=== PATIENT | female | born 1965 ===

== ENCOUNTER → 2024-02-01 | Outpatient (CLI) | payer BC ==
--- NOTE | 2024-02-01 12:19 | CT ---
EXAMINATION TYPE: CT abdomen pelvis wo con DATE OF EXAM: 02/01/2024 HISTORY: flank pain CT DLP: 1160 mGycm. Automated Exposure Control for Dose Reduction was Utilized. TECHNIQUE: CT scan of the abdomen and pelvis is performed without oral or IV contrast. COMPARISON: None Findings: The lungs are clear. There is surgical absence of the gallbladder. There is no biliary ductal dilatation. There is no organomegaly of the liver, pancreas, spleen or adrenal glands. There is a staghorn calculus of the right kidney with mild hydronephrosis. There are 2 kalen-like non obstructing calcifications in the left kidney. The caliber of the abdominal aorta is normal and there is no retroperitoneal adenopathy or hemorrhage . The bowel loops are normal in caliber is no evidence of obstruction. No inflammatory changes are iden tified in the mesentery and there is no free intraperitoneal air or fluid. There is no pelvic mass, free fluid, abscess or adenopathy. There is mild diverticulosis of the colon without CT evidence of diverticulitis. The osseous structures and soft tissues are unremarkable. IMPRESSION: 1. Staghorn calculus of the right kidney with mild hydronephrosis. 2. 2 tiny nonobstructing calcifications left kidney. 3. No other significant abnormality seen.
== END | disposition home or self-care (01) ==
LOC: RADCTMAIN 11:50
PROVIDERS: ATTEND Urology
DX: N13.2 Hydronephrosis with renal and ureteral calculous obstruction (principal); N28.89 Other specified disorders of kidney and ureter
CPT/HCPCS: 74176

== ENCOUNTER 2024-03-23 12:58 | Emergency (ER) | payer BC ==
--- NOTE | 2024-03-23 13:08 | ED ---
Lower Extremity Injury HPI - General Chief Complaint: Extremity Injury, Lower Stated Complaint: R leg pain Time Seen by Provider: 03/23/24 13:08 Source: patient, RN notes reviewed Mode of arrival: ambulatory Limitations: no limitations - History of Present Illness Initial Comments: 58-year-old female presents emergency department chief complaint of right knee pain. Patient states that last week Monday she was at a hair salon when she lifted her leg up to get into the chair and twisted her knee. Patient denies falling, hitting her head or loss conscious from the injury. Patient thought that she experienced a muscle strain at this time was prescribed Celexa by primary care provider which she has been taking as needed however this is not alleviated symptoms. Currently the pain is located to the lateral knee and is exacerbated with range of motion and ambulation. Denies previous surgeries of the knee. No other acute complaints at this time MD Complaint: knee injury -: week(s) Injury: Knee: Right Worsens With: weight bearing, movement, palpation - Related Data Previous Rx's Medication Instructions Recorded Celecoxib [CeleBREX] 100 mg PO BID PRN #14 cap 03/23/24 Allergies Allergy/AdvReac Type Severity Reaction Status Date / Time Penicillins Allergy Rash/Hives Verified 03/23/24 13:04 Review of Systems ROS Statement: Those systems with pertinent positive or pertinent negative responses have been documented in the HPI. ROS Other: All systems not noted in ROS Statement are negative. Past Medical History Past Medical History: Diabetes Mellitus, Hyperlipidemia Additional Past Medical History / Comment(s): kidney stones. POTS Past Surgical History: Cholecystectomy, Hysterectomy Smoking Status: Never smoker Past Alcohol Use History: None Reported Past Drug Use History: None Reported General Exam Limitations: no limitations General appearance: alert, in no apparent distress ENT exam: Present: normal exam, mucous membranes moist Neck exam: Present: normal inspection. Absent: tenderness, meningismus, lymphadenopathy Respiratory exam: Present: normal lung sounds bilaterally. Absent: respiratory distress, wheezes, rales, rhonchi, stridor Cardiovascular Exam: Present: regular rate, normal rhythm, normal heart sounds. Absent: systolic murmur, diastolic murmur, rubs, gallop, clicks GI/Abdominal exam: Present: soft, normal bowel sounds. Absent: distended, tenderness, guarding, rebound, rigid Right Knee exam: Present: tenderness, swelling (anterior), pain/laxity with valgus, pain/laxity with varus. Absent: abrasion, laceration, ecchymosis, deformity, crepitus, dislocation Foot/Toe exam: Present: normal inspection, full ROM. Absent: tenderness, swelling, abrasion Neurovascular tendon exam: Present: no vascular compromise. Absent: pulse deficit, abnormal cap refill Back exam: Present: normal inspection Neurological exam: Present: alert, oriented X3, CN II-XII intact Skin exam: Present: warm, dry, intact, normal color. Absent: rash Course Vital Signs 03/23/24 03/23/24 13:00 14:33 Temperature 97.7 F 98.1 F Pulse Rate 100 55 L Respiratory 20 18 Rate Blood Pressure 206/99 148/87 O2 Sat by Pulse 99 97 Oximetry Medical Decision Making - Medical Decision Making Was pt. sent in by a medical professional or institution (, PA, WIRE WINDER, urgent care, hospital, or detention...) When possible be specific @ -No Did you speak to anyone other than the patient for history (EMS, parent, family, police, friend...)? What history was obtained from this source @ -No Did you review nursing and triage notes (agree or disagree)? Why? @ -I reviewed and agree with nursing and triage notes Were old charts reviewed (outside hosp., previous admission, EMS record, old EKG, old radiological studies, urgent care reports/EKG's, detention records)? Report findings @ -No old charts were reviewed Differential Diagnosis (chest pain, altered mental status, abdominal pain women, abdominal pain men, vaginal bleeding, weakness, fever, dyspnea, syncope, headache, dizziness, GI bleed, back pain, seizure, CVA, palpatations, mental health, musculoskeletal)? @ -Differential Musculoskeletal Muscular strain, contusion, ligament sprain, fracture, arthritis, septic arthritis, bursitis, cellulitis, muscle spasm, nerve compression, DVT, arterial occlusion, herpes zoster, electrolyte abnormality, tumor.... This is not meant to be in all inclusive list EKG interpreted by me (3pts min.). @ -none X-rays interpreted by me (1pt min.). @ - xray of the right knee reveals no acute osseous pathology with osteoarthritic changes. CT interpreted by me (1pt min.). @ -None done U/S interpreted by me (1pt. min.). @ -None done What testing was considered but not performed or refused? (CT, X-rays, U/S, labs)? Why? @ -None What meds were considered but not given or refused? Why? @ -None Did you discuss the management of the patient with other professionals (professionals i.e. Dr., PA, WIRE WINDER, lab, RT, psych nurse, rn social services, cemetery workers supervisor, teacher, child support officer, correctional casework specialist)? Give summary @ -No Was smoking cessation discussed for >3mins.? @ -No Was critical care preformed (if so, how long)? @ -No Were there social determinants of health that impacted care today? How? (Homelessness, low income, unemployed, alcoholism, drug addiction, transportation, low edu. Level, literacy, decrease access to med. care, skilled nursing, rehab)? @ -No Was there de-escalation of care discussed even if they declined (Discuss DNR or withdrawal of care, Hospice)? DNR status @ -No What co-morbidities impacted this encounter? (DM, HTN, Smoking, COPD, CAD, Cancer, CVA, ARF, Chemo, Hep., AIDS, mental health diagnosis, sleep apnea, morbid obesity)? @ -None Was patient admitted / discharged? Hospital course, mention meds given and route, prescriptions, significant lab abnormalities, going to OR and other pertinent info. @ -discharged. 58-year-old female with right knee pain. On examination patient noted to have mild to moderate anterior swelling over the right knee and mild pain with range of motion of the knee. There were no neurovascular deficits on examination. patient is provided with toradol pending results of XR imaging. X-ray negative for acute process. Recommend patient follows up outpatient with primary care provider for further evaluation and recommend potential for further imaging such as MRI outpatient. Continue supportive treatment at home. sent prescription for celebrex to take as needed for pain relief. all questions answered at bedside and return parameters discussed and she has verbalized understanding. discussed with Dr. Kang. Undiagnosed new problem with uncertain prognosis? @ -No Drug Therapy requiring intensive monitoring for toxicity (Heparin, Nitro, Insulin, Cardizem)? @ -No Were any procedures done? @ -No Diagnosis/symptom? @ -Knee pain Acute, or Chronic, or Acute on Chronic? @ -Acute Uncomplicated (without systemic symptoms) or Complicated (systemic symptoms)? @ -uncomplicated Side effects of treatment? @ -No Exacerbation, Progression, or Severe Exacerbation? @ -No Poses a threat to life or bodily function? How? (Chest pain, [place], PR, pneumonia, PE, COPD, DKA, ARF, appy, cholecystitis, CVA, Diverticulitis, Homicidal, Suicidal, threat to staff... and all critical care pts) @ -No Disposition Clinical Impression: Right knee pain Disposition: HOME SELF-CARE Condition: Good Instructions (If sedation given, give patient instructions): Knee Sprain (ED) Additional Instructions: Return to emergency department for any new or worsening symptoms. Recommend you continue supportive treatment at home. Follow-up with your primary care provider within the next week for further evaluation. Prescriptions: Celecoxib [CeleBREX] 100 mg PO BID PRN #14 cap PRN Reason: Pain Is patient prescribed a controlled substance at d/c from ED?: No Referrals: Nonstaff,Physician [REFERRING] - 1-2 days Time of Disposition: 14:16
[2024-03-23] MEDS: KETOROLAC 15 MG/ML 1 ML VIAL IM STA (13:22)
--- NOTE | 2024-03-23 13:48 | XR ---
EXAMINATION TYPE: XR knee complete RT DATE OF EXAM: 03/23/2024 1:36 PM CLINICAL INDICATION: Female, 58 years old with history of swelling, injury 2 weeks ago, pain; COMPARISON: None. TECHNIQUE: XR knee complete RT; examined in Frontal, lateral and oblique projections. FINDINGS: No evidence of any acute osseous pathology, soft tissue swelling, or joint effusion is no ernie. Tricompartmental osteophyte formation involving the femoral condyles, tibial plateau and patella . Mild joint space narrowing. A fabella is present. IMPRESSION: 1. No acute osseous pathology. 2. Mild tricompartmental osteoarthritic changes. [facility], Workstation [id number], 03/23/2024 1:46 PM
[2024-03-23 14:34] VITALS: BP 148/87; PULSE 55; RESP 18; TEMP 98.1
== END 2024-03-23 14:34 | disposition home or self-care (01) ==
LOC: EC 12:58
CPT/HCPCS: 96372; 99283

== ENCOUNTER → 2024-03-25 | Outpatient (CLI) | payer BC ==
[2024-03-25 20:46] LABS: Appearance,Urine Turbid (Clear); Bilirubin,Urine Negative (Negative); Blood,Urine Large (Negative); Color,Urine Yellow (Yellow); Ketones,Urine Negative (Negative); Nitrite,Urine Negative (Negative); PH, Urine 5.5; Specific Gravity,Urine 1.024 (1.001-1.030); Urobilinogen,Urine 0.2 E.U./DL
[2024-03-25 20:50] LABS: Bacteria,Urine 3+ (None Seen)
[2024-03-25 21:37] LABS: BUN/Creat Ratio 20.45 Ratio (12.00-20.00); Blood Urea Nitrogen 22.5 mg/dL (9.0-27.0); Carbon Dioxide 25.1 mmol/L (21.6-31.8); Chloride 102 mmol/L (96-109); Glucose 252 mg/dL (70-110); Potassium 4.8 mmol/L (3.5-5.5); Sodium 140 mmol/L (135-145)
[2024-03-25 21:58] LABS: Basophils # (A) 0.03 X 10*3/uL (0.00-0.10); Basophils % (A) 0.3 %; Eosinophils # (A) 0.13 X 10*3/uL (0.04-0.35); Eosinophils % (A) 1.3 %; HGB 14.3 g/dL (12.0-15.0); Lymphocytes # (A) 3.16 X 10*3/uL (0.90-5.00); Lymphocytes % (A) 32.4 %; MCH 29.6 pg (27.0-32.0); MCHC 31.1 g/dL (32.0-37.0); MCV 95.2 FL (80.0-97.0); Monocytes # (A) 0.68 X 10*3/uL (0.20-1.00); NRBC Per 100 WBC 0 X 10*3/uL (0.00-0.01); Neutrophils # (A) 5.72 X 10*3/uL (1.80-7.70); Neutrophils % (A) 58.6 %; Platelet Count 322 X 10*3/uL (140-440); RBC 4.83 X 10*6/uL (4.10-5.20); RDW 13.2 % (11.5-14.5); WBC 9.76 X 10*3/uL (4.50-10.00)
== END | disposition home or self-care (01) ==
LOC: LABPAT 13:25
PROVIDERS: ATTEND Urology
DX: Z01.812 Encounter for preprocedural laboratory examination (principal); N20.0 Calculus of kidney
CPT/HCPCS: 36415; 80048; 81001; 85025; 86850; 86900; 86901; 87077; 87086; 87186

== ENCOUNTER 2024-04-02 05:42 | Day surgery (SDC) | payer BC ==
--- NOTE | 2024-03-28 09:39 | P.HPIHPCON ---
History of Present Illness H&P Date: 03/28/24 Chief Complaint: Right renal stone This is a 58-year-old female with a history of a right-sided staghorn calculi causing hydronephrosis. Discussed with her given this finding I do recommend proceeding with stone removal. Option of a right-sided PCNL was discussed with her. Aware the risk which includes but not limited to bleeding, infection, injury to the kidney. Risk of anesthesia was also discussed. Discussed also risk of injury to nearby organs which includes but not limited to bowel, liver, lung. She understood all the risk and agreed to proceed Consent for Procedure: I have explained the operation/procedure to the patient, including the risks, benefits, side effects, alternative therapies (including not receiving the proposed treatment or service), the likelihood of the patient achieving his/her goals, and potential recuperation problems for the procedure/sedation/analgesia, as well as any blood products, if indicated. I also explained to the patient the risks, benefits and side effects of the alternatives, as well as the risks related to not receiving the proposed procedure, care, treatment, or services. Medications and Allergies Home Medications Medication Instructions Recorded Confirmed Type Celecoxib [CeleBREX] 100 mg PO BID PRN #14 cap 03/23/24 Rx Allergies Allergy/AdvReac Type Severity Reaction Status Date / Time Penicillins Allergy Rash/Hives Verified 03/23/24 13:04 Surgical - Exam - General no distress, no pain - Eyes normal ocular movement, no pale - ENT normal nares, normal mucosa - Respiratory normal expansion, normal respiratory effort Assessment and Plan Assessment: OR for right-sided PCNL
[2024-03-29 09:14] VITALS: BMI 45.7
--- NOTE | 2024-04-02 06:24 | XR ---
EXAMINATION TYPE: XR KUB DATE OF EXAM: 04/02/2024 6:18 AM CLINICAL HISTORY: Calculus TECHNIQUE: Two Upright KUB images of the abdomen are obtained. COMPARISON: CT abdomen and pelvis February 01, 2024 FINDINGS: Rounded densities in the pelvis are consistent with phleboliths. Staghorn type calculi in t he lower pole right kidney on CT are less well seen on plain film. No definite nephrolithiasis. Overall nonobstructive bowel gas pattern. Cholecystectomy clips are redemonstrated. Osseous structure s are intact. IMPRESSION: As above. [facility], , 04/02/2024 6:22 AM
[2024-04-02 06:54] LABS: Glucose,Whole Blood 151 mg/dL (70-110)
[2024-04-02] MEDS ORDERED: HYDROmorphone 0.5 MG/0.5 ML SYRINGE IVP PRN (07:00)
[2024-04-02] MEDS: ONDANSETRON 4 MG/2 ML VIAL IVP PRN (07:13)
[2024-04-02] MEDS: LACTATED RINGERS 1,000 ML IV ONE ×2 (07:23→09:30)
[2024-04-02] MEDS: DEXAMETHASONE SOD PHOSPHATE 4 MG/ML 1 ML VIAL IVP ONE (07:23)
[2024-04-02] MEDS ORDERED: SUCCINYLCHOLINE CHLORIDE 200 MG/10 ML VIAL IV ONE (07:39)
[2024-04-02] MEDS ORDERED: fentaNYL (PF) 50 MCG/ML 2 ML AMP ONE (07:39)
[2024-04-02] MEDS ORDERED: PHENYLEPHRINE 10 MG/ML VIAL ONE (07:39)
[2024-04-02] MEDS ORDERED: LIDOCAINE 1% INJ 10MG/ML (20 ML MDV) ONE (07:39)
[2024-04-02] MEDS ORDERED: PROPOFOL 10 MG/ML 20 ML VIAL IV ONE (07:39)
[2024-04-02] MEDS ORDERED: NEOSTIGMINE 1 MG/ML 10 ML VIAL ONE (07:39)
[2024-04-02] MEDS ORDERED: ROCURONIUM 10 MG/ML (5 ML VIAL) IV ONE (07:39)
[2024-04-02] MEDS ORDERED: MIDAZOLAM 2 MG/2 ML VIAL ONE (07:39)
[2024-04-02] MEDS ORDERED: SUGAMMADEX SODIUM 200 MG/2 ML SDV IV ONE (07:39)
[2024-04-02] MEDS ORDERED: GLYCOPYRROLATE 0.2 MG/ML 2 ML VIAL ONE (07:39)
[2024-04-02] MEDS ORDERED: HYDROmorphone (PF) 1 MG/ML ONE (07:39)
[2024-04-02] MEDS: CIPROFLOXACIN/DEXTROSE PMX 400 MG in DEXTROSE/WATER 1 200ML.BAG IVPB PRN (07:44)
[2024-04-02] MEDS: GENTAMICIN 120 MG in SODIUM CHLORIDE 0.9% 100 ML IVPB PRN (07:44)
[2024-04-02] MEDS: IOPAMIDOL-370 100ML BTL MISCELLANE ONE ×2 (08:32)
[2024-04-02] MEDS ORDERED: ACETAMINOPHEN TAB 325 MG TAB PO PRN (10:12)
[2024-04-02] MEDS ORDERED: MAG HYDROX/AL HYDROX/SIMETH 30 ML CUP PO PRN (10:12)
[2024-04-02] MEDS ORDERED: ONDANSETRON 4 MG/2 ML VIAL IVP PRN (10:12)
[2024-04-02 10:26] LABS: Glucose,Whole Blood 182 mg/dL (70-110)
--- NOTE | 2024-04-02 10:27 | P.OP ---
Date of Procedure: 04/02/24 Preoperative Diagnosis: Right-sided renal stone Postoperative Diagnosis: Same Procedure(s) Performed: Cystoscopy, right ureteral catheterization, right-sided percutaneous nephrolithotomy (>2cm) Implants: None Anesthesia: AMILCARA Surgeon: Camden Branch Estimated Blood Loss (ml): 100 Pathology: other (Right renal stone) Condition: stable Disposition: PACU Indications for Procedure: This is a 58-year-old female with a history of a right-sided staghorn calculi causing hydronephrosis. Discussed with her given this finding I do recommend proceeding with stone removal. Option of a right-sided PCNL was discussed with her. Aware the risk which includes but not limited to bleeding, infection, injury to the kidney. Risk of anesthesia was also discussed. Discussed also risk of injury to nearby organs which includes but not limited to bowel, liver, lung. She understood all the risk and agreed to proceed Operative Findings: Large right-sided renal stone within the renal pelvis, multiple smaller stones within the lower pole Description of Procedure: Patient brought the operating room, general anesthesia was induced. She was placed in a frog-leg position on the OR stretcher. Next a cystoscopy with a 22 Afghan sheath was inserted per urethra, brief cystoscopy was performed showed no abnormality within the bladder. The right ureteral orifice was visualized and intubated with a sensor wire. At this time the cystoscope was withdrawn with the wire in place. Next a balloon occlusion catheter was passed over the wire. The 16 Fr rodríguez catheter was placed and the tube was secured to the catheter. At this point the patient was placed in prone position, all pressure points were padded. The right flank was prepped and draped in sterile fashion. Access was obtained by Dr. Cooley at the upper pole above the 12th rib. Please see his procedure note for that portion of the case. After 2 wires were visualized down the ureter at this point a 30 Afghan NephroMax balloon was passed over the wire and the tract was dilated under fluoroscopy. Next the 30 Afghan access sheath was passed over the balloon dilator and into the kidney. At this time the rigid nephroscope was inserted through the access sheath, a large stone was encountered in the renal pelvis which was broken up using the cyber wand. An additional small stone was also encountered in the lower pole which was also fragmented. At this time using the grasper all sizable fragments were removed. Of note on the lower pole there was multiple small stasis stones that were also removed. Repeat renoscopy showed no additional stones. This time I switched to the flexible cystoscope and a complete renoscopy was also performed showed no additional stones, on fluoroscopy there was no evidence of any radiopaque densities. But of note the stone was fairly radiolucent. At this time the nephroscope was withdrawn and a 12 Afghan nephrostomy tube was passed over the wire, antegrade nephrostogram was performed showed no filling defect and contrast was seen draining down the ureter. At this time the access sheath was removed with the nephrostomy tube in place, the medial aspect of the incision was closed with 2-0 Vicryl, lateral aspect of the incision was closed with 2-0 silk and this was secured to the tube. Sterile dressing was applied. Patient was awakened from anesthesia and taken to recovery in stable condition
[2024-04-02] MEDS: LACTATED RINGERS 1,000 ML IV SCH (12:22)
[2024-04-02] MEDS: HYDROmorphone 1 MG/ML 1 ML SYRINGE IVP PRN (12:54)
[2024-04-02] MEDS: KETOROLAC 15 MG/ML 1 ML VIAL IVP SCH (15:06)
[2024-04-02] MEDS: INSULIN ASPART (NovoLOG) 100 UNIT/ML VIAL SQ SCH (15:07)
[2024-04-02] MEDS: SODIUM CHLORIDE 0.9% 1,000 ML IV SCH (15:16)
[2024-04-02] MEDS: DEXAMETHASONE SOD PHOSPHATE 4 MG/ML 1 ML VIAL IV ONE (15:17)
[2024-04-02 17:59] LABS: Glucose,Whole Blood 173 mg/dL (70-110)
[2024-04-02] MEDS: INSULIN DETEMIR (LEVEMIR) 100 UNIT/ML SYR SQ SCH (18:06)
[2024-04-02] MEDS: HEPARIN SODIUM,PORCINE 5,000 UNIT/ML 1 ML VIAL SQ SCH (18:08)
[2024-04-02] MEDS: LEVOFLOXACIN 500 MG TAB PO SCH (19:46)
[2024-04-02] MEDS: ATORVASTATIN 40 MG TAB PO SCH (19:47)
[2024-04-02 20:14] LABS: Glucose,Whole Blood 178 mg/dL (70-110)
[2024-04-03 06:13] LABS: Glucose,Whole Blood 159 mg/dL (70-110)
[2024-04-03 07:48] VITALS: RESP 15
[2024-04-03] MEDS: DULoxetine HCL 60 MG CAPSULE.DR PO SCH (10:07)
[2024-04-03] MEDS: PANTOPRAZOLE 40 MG TABLET PO SCH (10:07)
[2024-04-03] MEDS: PIOGLITAZONE 30 MG TAB PO SCH (10:07)
[2024-04-03] MEDS: lisinopriL 5 MG TAB PO SCH (10:07)
[2024-04-03 11:21] LABS: Glucose,Whole Blood 149 mg/dL (70-110)
--- NOTE | 2024-04-03 14:29 | P.DS ---
Providers Attending physician: Camden Branch MD Primary care physician: [facility] Course: This is a 58-year-old female with history of right-sided renal stone. On percutaneous nephrolithotomy on April 02. Please see op note dated April 02 for surgery details. Patient was admitted to the hospital postoperatively. Escobar catheter was removed on postop day #1. she was discharged home on postop day #1. At time of discharge she was tolerating a diet, ambulating, and pain was controlled. She was discharged home with a nephrostomy tube Plan - Discharge Summary Discharge Rx Participant: Yes New Discharge Prescriptions: New Ketorolac [Toradol] 10 mg PO Q6HR PRN #15 tab PRN Reason: Pain No Action lisinopriL [Zestril] 5 mg PO DAILY Omeprazole 40 mg PO DAILY Insulin Glargine,Hum.rec.anlog [Lantus Solostar Pen] 40 units SQ W/SUPPER Nf-Unk Abx For Uti 1 tab PO DAILY Pioglitazone [Actos] 30 mg PO DAILY DULoxetine HCL [Cymbalta] 60 mg PO DAILY Insulin Aspart [NovoLOG Flexpen] 20 units SQ TID-W/MEALS Tirzepatide [Mounjaro] 5 mg SQ HERNANDEZ Rosuvastatin [Crestor] 20 mg PO HS Discharge Medication List DULoxetine HCL [Cymbalta] 60 mg PO DAILY 03/29/24 [History] Insulin Aspart [NovoLOG Flexpen] 20 units SQ TID-W/MEALS 03/29/24 [History] Insulin Glargine,Hum.rec.anlog [Lantus Solostar Pen] 40 units SQ W/SUPPER 03/29 [History] Nf-Unk Abx For Uti 1 tab PO DAILY 03/29/24 [History] Omeprazole 40 mg PO DAILY 03/29/24 [History] Pioglitazone [Actos] 30 mg PO DAILY 03/29/24 [History] Rosuvastatin [Crestor] 20 mg PO HS 03/29/24 [History] Tirzepatide [Mounjaro] 5 mg SQ HERNANDEZ 03/29/24 [History] lisinopriL [Zestril] 5 mg PO DAILY 03/29/24 [History] Ketorolac [Toradol] 10 mg PO Q6HR PRN #15 tab 04/03/24 [Rx] Activity/Diet/Wound Care/Special Instructions: Increase fluid intake No heavy lifting or straining for 2 weeks
[2024-04-03 14:48] VITALS: BP 142/65; PULSE 98; TEMP 97.6
--- NOTE | 2024-04-04 06:35 | FL ---
EXAMINATION TYPE: FL Perc Nephrostomy New Access Intraoperative/procedural fluoroscopic services were provided. Total fluoroscopy time is 3 minutes 45 seconds seconds with a total of 2 submitted images to PACS. Please see the operative/procedural note for further details. DAP: 1.70 mGym2 Gycm2 uGym2 cGycm2 [facility], , 04/04/2024 6:33 AM
--- NOTE | 2024-04-10 16:30 | P.PCN ---
Date of Procedure: 04/02/24 Preoperative Diagnosis: right renal stone large Postoperative Diagnosis: Right renal stone large Procedure(s) Performed: right percutaneous nephrostomy access Anesthesia: STEWART Surgeon: Obed Cooley Indications for Procedure: The patient has a large right renal stone. Dr Branch will do a right pcnl. I will perform right perc access. Description of Procedure: The patient is in the or. Previously put to sleep and Dr branch has placed an occluding ballon catheter up the right ureter. After a sterile prep and drape and in a prone position through the ureteral catheter the right renal collecting system is outlined with air . I identify a posterior upper pole calyx. It is intubated with a 6 fr chiba needle. I then pass a cope mandril wire through the needle and it goes directly down the ureter. I then pass a 3 fr dilating catheter over the cope wire. The wire and inner sheaths are removed and then I pass an 0.35 superstiff wire down the ur eter. I remove the 3 fr sheath and then pass an 8/10 exchange catheter. The inner catheter is removed and I then pass down and second 0.35 safety wire. Over the working wire is then passed the nephrostomy tract dilating balloon.
== END 2024-04-03 17:46 | disposition home or self-care (01) ==
LOC: OR 05:42 → 4SSUR 09:30 → OR 04-03 17:46
PROVIDERS: ATTEND Urology
DX: N20.0 Calculus of kidney
CPT/HCPCS: 50432; 74018; 82365